=== PATIENT | male | born 1965 | race Caucasian/White ===

== ENCOUNTER 2022-02-09 08:23 | Outpatient (CLI) | payer OTHER, SELFPAY ==
--- NOTE | ~2022-02-09 | US_ITS ---
US abdomen limited INDICATION: Alcoholic cirrhosis PROCEDURE: Realtime right upper abdominal ultrasound. COMPARISON: No prior studies for comparison. FINDINGS: The pancreas is normal without focal mass or pancreatic ductal dilation. Liver echotexture is coarse and heterogeneous. Small amount of perihepatic ascites. No focal hepatic masses. Small rig ht pleural effusion. There is normal directional flow in the portal vein. The gallbladder is normal without stones, gallbladder wall thickening or pericholecystic fluid. Comm on bile duct measures 8.9 mm. No sonographic Tony's sign. IMPRESSION: 1: Coarse heterogeneous liver echotexture without focal mass. 2: Small right pleural effusion. Small amount of ascites. 3: Mildly dilated common duct measuring 8.9 mm. Reviewed, dictated and finalized at location B.
== END 2022-02-09 08:24 | disposition home or self-care (01) ==
LOC: CHSIMG 08:27
PROVIDERS: PCP Family Medicine
DX: K70.30 Alcoholic cirrhosis of liver without ascites (principal)
CPT/HCPCS: 76705

== ENCOUNTER 2022-07-20 14:21 | Outpatient (CLI) | payer OTHER, SELFPAY ==
--- NOTE | ~2022-07-20 | MMUS_ITS ---
EXAMINATION: MM diagnostic shyanne RT w jessica, US breast RT complete HISTORY: Mass of upper outer right breast TECHNIQUE: Bilateral MLO and right CC Tomosynthesis mammographic images were performed and synthetic 2-D images were generated. CAD analysis was submitted and interpreted. High resolution complete right breast ultrasound examination including all 4 quadrants and subareolar area was performed. COMPARISON: None BREAST PARENCHYMAL COMPOSITION: The breasts are heterogeneously dense, which may obscure small masses . FINDINGS: MAMMOGRAPHIC FINDINGS: There is prominent bilateral gynecomastia. No suspicious mass, architectural distortion, malignant ca lcification, skin thickening or retraction is detected. ULTRASOUND: No suspicious mass or shadowing of the right breast is detected. IMPRESSION: Bilateral gynecomastia; no mammographic evidence of malignancy BI-RADS Category 2: Benign finding(s). Reviewed, dictated and finalized at location A. IMPRESSION: Bilateral gynecomastia; no mammographic evidence of malignancy BI-RADS Category 2: Benign finding(s).
== END 2022-07-20 14:22 | disposition home or self-care (01) ==
PROVIDERS: PCP Family Medicine; Visit Provider Family Medicine
DX: N63.11 Unspecified lump in the right breast, upper outer quadrant (principal); N62 Hypertrophy of breast
CPT/HCPCS: 76641; 77061; 77065; G0279

== ENCOUNTER 2022-08-17 08:35 | Outpatient (CLI) | payer OTHER, SELFPAY ==
--- NOTE | ~2022-08-17 | US_ITS ---
Limited Abdominal Sonogram: Real-time sonographic imaging of the right upper quadrant was performed. Clinical History: Cirrhosis Findings: The liver appears mildly heterogeneous, with no evidence of mass lesion or bile duct dilat ation. Main portal vein demonstrates normal direction of flow. The gallbladder is well distended, and appears normal with no evidence of gallstone or wall thickening. The common bile duct measures 6 mm. The visualized pancreas is unremarkable. 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 Impression: Mildly heterogeneous hepatic echotexture. Correlate for fatty infiltration or other chronic liver dis ease. 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 Consider CT to more completely evaluate aneurysm. Reviewed, dictated and finalized at [facility]. Impression: Mildly heterogeneous hepatic echotexture. Correlate for fatty infiltration or o ther chronic liver disease. 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 Consider CT to more completely eval uate aneurysm.
== END 2022-08-17 08:36 | disposition home or self-care (01) ==
LOC: CHSIMG 08:39
PROVIDERS: PCP Family Medicine
DX: K70.30 Alcoholic cirrhosis of liver without ascites (principal); I71.40 Abdominal aortic aneurysm, without rupture, unspecified
CPT/HCPCS: 76705